=== PATIENT | male | born 1985 | race Caucasian/White ===

== ENCOUNTER 2019-04-19 16:05 | Emergency (ER) | payer SELFPAY, BC | END 2019-04-19 17:09 | disposition home or self-care (01) | LOC: JERFT 16:05 ==

== ENCOUNTER 2020-08-08 16:32 | Emergency (ER) | payer OTHER ==
[2020-08-08 16:42] VITALS: TEMP 98; BMI 25.1
[2020-08-08] MEDS ORDERED: SODIUM CHLORIDE 1,000 ML IV STA (17:17)
[2020-08-08 17:49] LABS: EOS % 2.7 % (0-4.5); HEMATOCRIT 50.6 % (35.4-49); LYMPH % 34.2 % (8-40); MCH 28.5 pg (25.7-33.7); MCHC 33.6 g/dl (32.0-35.9); MEAN CELL VOLUME 84.8 fl (80-96); MEAN PLT VOLUME 7.4 fl (7.5-11.1); NEUT % 54.1 % (42.8-82.8); PLATELET COUNT 438 K/MM3 (134-434); RBC 5.97 M/mm3 (4.00-5.60); RDW 13.9 % (11.9-15.9); WHITE BLOOD COUNT 9.9 K/mm3 (4.0-10.0)
[2020-08-08 18:08] LABS: CHLORIDE 104 mmol/L (98-107); POTASSIUM 4.2 mmol/L (3.5-5.1); SODIUM 138 mmol/L (136-145)
[2020-08-08 18:10] LABS: ALBUMIN 4.2 g/dl (3.4-5.0); ANION GAP 7 MMOL/L (8-16); BLOOD UREA NITROGEN 17.3 mg/dL (7-18); CALCIUM 9.4 mg/dL (8.5-10.1); CO2 27 mmol/L (21-32); GLUCOSE,RANDOM 115 mg/dL (74-106)
[2020-08-08 18:13] LABS: SGOT/AST 29 U/L (15-37); SGPT/ALT 67 U/L (13-61)
[2020-08-08 18:15] LABS: BILIRUBIN,TOTAL 0.3 mg/dL (0.2-1); TOT PROT 7.6 g/dl (6.4-8.2)
[2020-08-08 18:16] LABS: ALK PHOS 76 U/L (45-117)
[2020-08-08 18:35] LABS: ERYTHROCYTE SEDIMENTATION RATE 1 mm/hr (0-10)
[2020-08-08 21:26] VITALS: BP 126/78; PULSE 90
== END 2020-08-08 21:26 | disposition home or self-care (01) ==
LOC: JER 16:32 → JERFT 16:32
PROC: 3E0337Z Introduction of Electrolytic and Water Balance Substance into Peripheral Vein, Percutaneous Approach (ICD-10-PCS; principal; 2020-08-08)
DX: R22.0 Localized swelling, mass and lump, head (principal)
CPT/HCPCS: 36415; 70481-TC; 80053; 84443; 85025; 85651; 86140; 93005; 93010; 99285-25; Q9967

== ENCOUNTER 2022-04-02 06:10 | Emergency (ER) | payer OTHER ==
[2022-04-02 06:31] VITALS: TEMP 98.3; BMI 22.3
[2022-04-02] MEDS ORDERED: predniSONE 20 MG TABLET (UD) PO ONE (07:35)
[2022-04-02] MEDS ORDERED: FAMOTIDINE 20 MG TABLET PO ONE (07:35)
[2022-04-02] MEDS ORDERED: predniSONE 20 MG TABLET (UD) ONE (07:54)
[2022-04-02] MEDS ORDERED: FAMOTIDINE 20 MG TABLET ONE (07:54)
[2022-04-02 07:58] VITALS: BP 107/82; PULSE 84; RESP 18
== END 2022-04-02 08:05 | disposition home or self-care (01) ==
LOC: JER 06:10
DX: L50.9 Urticaria, unspecified (principal)
CPT/HCPCS: 99283-25